=== PATIENT | male | born 1995 | race Caucasian/White ===

== ENCOUNTER 2017-12-13 11:25 | Emergency (ER) | payer OTHER ==
[~2017-12-13] VITALS: Ht 188 cm; Wt 86.2 kg
[2017-12-13 11:43] VITALS: BP 131/80
[2017-12-13] MEDS ORDERED: ASPirin 81 mg TAB PO ONE (12:00)
[2017-12-13 12:13] LABS: Basophils # (auto) 0.1 uL; Basophils % (auto) 1.1 % (0.0-2.0); Eosinophils # (auto) 0.2 uL; Eosinophils % (auto) 3.5 % (0.0-7.0); Hematocrit 43.1 % (41.0-53.0); Hemoglobin 14.8 g/dL (13.5-17.5); Lymphocytes # (auto) 1.7 uL; Lymphocytes % (auto) 30.3 % (10.0-50.0); Mean Corpuscular Hgb Conc. 34.3 g/dL (32.0-36.0); Mean Corpuscular Volume 84.6 fL (80.0-100.0); Monocytes # (auto) 0.5 uL; Monocytes % (auto) 9.5 % (0.0-12.0); Neutrophils # (auto) 3.1 uL; Neutrophils % (auto) 55.6 % (37.0-80.0); Nucleated Red Blood Cells % 0.1 %; Platelet Count (auto) 213 10^3/uL (140-450); Red Cell Distribution Width 12.9 % (11.8-14.3); White Blood Cell 5.7 10^3/uL (4.4-10.8)
[2017-12-13 12:32] LABS: Alanine Aminotransferase 17 U/L (16-61); Albumin 4.7 g/dL (3.4-5.0); Anion Gap 7 (5-15); Aspartate Aminotransferase 14 U/L (15-37); BUN/Creatinine Ratio 11.7; Blood Urea Nitrogen 14 mg/dL (7-18); Calcium 9.2 mg/dL (8.5-10.1); Carbon Dioxide 28 mmol/L (21-32); Chloride 105 mmol/L (98-107); GFR African American 96 mL/min; GFR Non-African American 80 mL/min; Glucose 91 mg/dL (74-106); Potassium 4.1 mmol/L (3.5-5.1); Sodium 140 mmol/L (136-145)
[2017-12-13 12:39] LABS: Alkaline Phosphatase 61 U/L (45-117); Bilirubin, Total 0.9 mg/dL (0.2-1.0); Total Protein 7.9 g/dL (6.4-8.2)
== END 2017-12-13 13:46 | disposition home or self-care (01) ==
LOC: ER 11:31
DX: R07.89 Other chest pain (principal); F41.9 Anxiety disorder, unspecified
CPT/HCPCS: 36415; 71046; 80053; 84484; 85025; 93005

== ENCOUNTER 2018-06-21 01:31 | Emergency (ER) | payer OTHER ==
[~2018-06-21] VITALS: Ht 188 cm; Wt 88.5 kg
[2018-06-21 02:06] VITALS: BP 129/80
== END 2018-06-21 02:58 | disposition home or self-care (01) ==
LOC: ER 01:33
DX: B83.9 Helminthiasis, unspecified (principal); G47.00 Insomnia, unspecified